=== PATIENT | male | born 1970 | race Caucasian/White ===

== ENCOUNTER 2016-09-04 13:42 | Emergency (ER) | payer SELFPAY ==
[~2016-09-04] VITALS: Ht 175.3 cm; Wt 85.0 kg
[~2016-09-04 13:42] MED LIST: CEPH500C3 PO; IBUP800T23 PO; LORTA5 PO
[2016-09-04 13:44] VITALS: BP 150/85; PULSE 87; RESP 14; TEMP 98.8; O2SAT 98
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
[2016-09-04] MEDS ORDERED: KETOROLAC TROMETHAMINE 60 MG/2 ML (IM) VIAL IM ONE (14:15)
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
[2016-09-04] MEDS ORDERED: IBUP800T23 PO (14:43)
== END 2016-09-04 15:16 | disposition home or self-care (01) ==
LOC: NEPK 13:42
DX: S50.02XA Contusion of left elbow, initial encounter (principal); W22.09XA Striking against other stationary object, initial encounter; Y93.55 Activity, bike riding; Y92.9 Unspecified place or not applicable; Y99.8 Other external cause status; Z72.0 Tobacco use
CPT/HCPCS: 73080; 96372; 99283; J1885

== ENCOUNTER 2017-07-17 11:43 | Emergency (ER) | payer SELFPAY ==
[~2017-07-17] VITALS: Ht 177.8 cm; Wt 84.0 kg
[~2017-07-17 11:43] MED LIST changes: -CEPH500C3 PO; +IBUP1TAB7 PO; -IBUP800T23 PO; -LORTA5 PO
[2017-07-17 11:50] VITALS: BP 145/78; PULSE 72; RESP 16; TEMP 98.3; O2SAT 98
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
--- NOTE | 2017-07-17 12:39 | RADRPT ---
EXAM DATE/TIME: 07/17/2017 12:20 [facility] COMPARISON: No previous studies available for comparison. INDICATIONS : Right shoulder pain and loss of motion, after over extended arm while lifting 500 lb couch, MEDICAL HISTORY : None. SURGICAL HISTORY : None. ENCOUNTER: Initial ACUITY: 1 week PAIN SCORE: 10/10 LOCATION: Right shoulder. FINDINGS: Multiple view examination of the right shoulder demonstrates no evidence of fracture or dislocation. The glenohumeral and acromioclavicular joints are maintained. There is normal range of motion betwe en internal and external rotation. Bony mineralization is normal. CONCLUSION: Unremarkable examination of the right shoulder. Raymundo Bear MD on July 17, 2017 at 12:36 Board Certified Radiologist. This report was verified electronically.
[2017-07-17] MEDS ORDERED: TRAM50 PO (12:46)
[2017-07-17] MEDS ORDERED: BACL20TA PO (12:46)
== END 2017-07-17 13:09 | disposition home or self-care (01) ==
LOC: NEPD 11:43
DX: M25.511 Pain in right shoulder (principal); Z72.0 Tobacco use
CPT/HCPCS: 73030; 99283

== ENCOUNTER 2017-08-13 16:05 | Emergency (ER) | payer SELFPAY ==
[~2017-08-13 16:05] MED LIST changes: +BACL20TA PO; +TRAM50 PO
[2017-08-13 16:30] VITALS: BP 150/67; PULSE 74; RESP 20; TEMP 98.5; O2SAT 98
--- NOTE | 2017-08-13 17:18 | PD ---
HPI Chief Complaint: Injury Time Seen by Provider: 17:10 Travel History International Travel<30 days: No Contact w/Intl Traveler<30days: No Traveled to known affect area: No History of Present Illness HPI Patient is a 47-year-old male presents emergency department for evaluation of right foot pain. Patient states he was walking the other day in a poorly lit area and stepped in a pothole. States injury was almost 24 hours ago. 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 States the pain is been getting gradually worse throughout the day. He has been able to walk with a limp. Denies any other injuries. States the pain primarily over the lateral foot. Symptoms mild, gradually worsening, context and duration as above PFSH Past Medical History Asthma: No Cardiovascular Problems: No Cerebrovascular Accident: No Diabetes: No Dialysis: No ?: Not Social History Alcohol Use: Yes Tobacco Use: Yes Substance Use: No Allergies-Medications (Allergen,Severity, Reaction): Coded Allergies: No Known Allergies (Unverified , 09/04/16) Reported Meds & Prescriptions Reported Meds & Active Scripts Active Ultram (Tramadol HCl) 50 Mg Tab 50 Mg PO Q8H PRN Baclofen 20 Mg Tab 20 Mg PO TID 7 Days Ibuprofen 800 Mg Tab 800 Mg PO TID Review of Systems Except as stated in HPI: all other systems reviewed are Neg Physical Exam Narrative GENERAL: Well-nourished, well-developed patient. SKIN: Focused skin assessment warm/dry. HEAD: Normocephalic. EYES: No scleral icterus. No injection or drainage. NECK: Supple, trachea midline. No JVD or lymphadenopathy. CARDIOVASCULAR: Regular rate and rhythm without murmurs, gallops, or rubs. RESPIRATORY: Breath sounds equal bilaterally. No accessory muscle use. GASTROINTESTINAL: Abdomen soft, non-tender, nondistended. MUSCULOSKELETAL: No cyanosis, or edema. No gross deformity, no bruising on the scan, no swelling seen over the ankle or foot. Compartments are soft, pulse motor and sensory intact distally in all 4 extremities. There is no tenderness over the malleoli at the proximal fibula but there is some minimal tenderness over the proximal fifth metatarsal. Patient is able to ambulate with a minimal limp. BACK: Nontender without obvious deformity. No CVA tenderness. Data Data Last Documented VS Vital Signs Date Time Temp Pulse Resp B/P (MAP) Pulse Ox O2 Delivery O2 Flow Rate FiO2 08/13/17 18:48 08/13/17 18:40 70 18 99 Room Air 08/13/17 16:30 98.5 Orders Orders Foot, Complete ([id number]) (08/13/17 ) Chadd Bandage (08/13/17 18:39) Ed Discharge Order (08/13/17 18:39) MDM Medical Decision Making Medical Screen Exam Complete: Yes Emergency Medical Condition: Yes Differential Diagnosis Contusion, fracture, strain, sprain, Rene, Lisfranc. Narrative Course Patient room to the emergency department, midfoot is remarkably stable, there is no laxity of the joint. X-ray was obtained showing no abnormality. I do not think that stress views are indicated at this time. The patient was placed in Chadd wrap discussed symptomatic management and return to ED criteria and follow-up with a regular physician. Stable for discharge Diagnosis Primary Impression: Foot contusion Patient Instructions: General Instructions, Musculoskeletal Pain (ED) Departure Forms: Tests/Procedures, Work Release Enter return to work date: Aug 15, 2017 Disposition: 01 DISCHARGE HOME Condition: Stable Blayne Roque MD Aug 13, 2017 17:18
--- NOTE | 2017-08-13 17:41 | RADRPT ---
EXAM DATE/TIME: 08/13/2017 17:29 [facility] COMPARISON: No previous studies available for comparison. INDICATIONS : Right foot pain; fell in hole lastnight. MEDICAL HISTORY : None. SURGICAL HISTORY : None. ENCOUNTER: Initial ACUITY: 1 day PAIN SCORE: 8/10 LOCATION: Right foot. FINDINGS: Three view examination of the right foot demonstrates no soft tissue swelling, dislocation, or fractu re. The tarsal bones appear intact. The interphalangeal and metatarsophalangeal joints are intact. The calcaneus is intact. Bony mineralization is normal. CONCLUSION: Unremarkable examination of the right foot. Reinier Oshea MD on August 13, 2017 at 17:38 Board Certified Radiologist. This report was verified electronically.
[2017-08-13 18:40] VITALS: BP 152/78; PULSE 70; RESP 18; O2SAT 99
== END 2017-08-13 18:49 | disposition home or self-care (01) ==
LOC: NEPD 16:05
DX: S90.31XA Contusion of right foot, initial encounter (principal); W17.2XXA Fall into hole, initial encounter; Y93.01 Activity, walking, marching and hiking
CPT/HCPCS: 73630; 99283